=== PATIENT | male | born 1995 | race Two or more races ===

== ENCOUNTER 2019-06-22 00:49 | Emergency (ER) | payer OTHER ==
[~2019-06-22] VITALS: Ht 180.3 cm; Wt 81.6 kg
[2019-06-22 01:03] VITALS: BP 118/37
[2019-06-22] MEDS ORDERED: HYDROcodone-ACET 5/325MG TAB PO ONE (03:00)
== END 2019-06-22 03:22 | disposition home or self-care (01) ==
LOC: EDBD 00:49 → ER 00:49
DX: S00.83XA Contusion of other part of head, initial encounter (principal); S80.211A Abrasion, right knee, initial encounter; J98.2 Interstitial emphysema; R42 Dizziness and giddiness; Y04.2XXA Assault by strike against or bumped into by another person, initial encounter; Y93.89 Activity, other specified; Y92.89 Other specified places as the place of occurrence of the external cause; Y99.8 Other external cause status
CPT/HCPCS: 70450; 71250; 74176

== ENCOUNTER 2022-12-01 14:16 | Emergency (ER) | payer MEDICAID, OTHER ==
[~2022-12-01] VITALS: Ht 177.8 cm; Wt 95.4 kg
[2022-12-01 16:03] VITALS: BP 129/71
[2022-12-01] MEDS ORDERED: HYDROcodone-ACET 5/325MG TAB PO ONE (16:15)
[2022-12-01] MEDS ORDERED: IBUP800T27 PO (16:27)
== END 2022-12-01 16:29 | disposition home or self-care (01) ==
LOC: EDBD 14:16 → ER 14:16
DX: S82.54XA Nondisplaced fracture of medial malleolus of right tibia, initial encounter for closed fracture (principal); S82.891A Other fracture of right lower leg, initial encounter for closed fracture; F12.10 Cannabis abuse, uncomplicated; V43.52XA Car driver injured in collision with other type car in traffic accident, initial encounter; Y93.89 Activity, other specified; Y92.89 Other specified places as the place of occurrence of the external cause; Y99.8 Other external cause status
CPT/HCPCS: 29515; 73610